=== PATIENT | male | born 1950 | race Caucasian/White ===

== ENCOUNTER 2021-02-01 09:08 | Emergency (ER) | payer MEDICARE, OTHER ==
[2021-02-01] MEDS ORDERED: NAPROXEN500 MG PO (10:43)
[2021-02-01] MEDS ORDERED: NORCO 5-325 TA1 EACH PO (10:43)
== END 2021-02-01 11:43 | disposition home or self-care (01) ==
LOC: FER 09:08
DX: S62.316A Displaced fracture of base of fifth metacarpal bone, right hand, initial encounter for closed fracture (principal); S43.101A Unspecified dislocation of right acromioclavicular joint, initial encounter; W19.XXXA Unspecified fall, initial encounter; Y93.89 Activity, other specified
CPT/HCPCS: 73030; 73130; 96374; 96375; J1170; J2060; J2405